=== PATIENT | female | born 1960 | race Caucasian/White ===

== ENCOUNTER 2016-05-08 15:32 | Inpatient (IN) | payer MEDICARE ==
[~2016-05-08] VITALS: Ht 160 cm; Wt 59.1 kg
[2016-05-08] VITALS (10 sets, daily range): BP systolic 139–191; BP diastolic 85–121
--- NOTE | ~2016-05-08 | EKG ---
[place], [place] ELECTROCARDIOGRAM REPORT NAME: SHANTEL DREW UNIT #: [id number] ROOM: 421 DOCTOR: IVANA SAVAGE MD BIRTHDATE: [birth year] DOS: 05/08/2016 TIME: 1600 hours. 1. Sinus tachycardia at 105 beats per minute. 2. Nonspecific T-wave changes in lateral chest leads. 3. Abnormal ECG. 4. No previous tracing is available for comparison. IVANA SAVAGE MD CM:EKGRPT:ELECTROCARDIOGRAM REPORT 23 IVANA SAVAGE MD
[~2016-05-08 15:32] MED LIST: ALBUTEROL0.63 MG/3 NEB; ASPIRIN81 M1 PO; ATIVAN1 MG PO; AUGMENTIN 875875 MG PO; CARAFATE1 G1 PO; CHEWABLE ASPIRI81 MG PO; CIPRO500 MG PO; COLACE100 MG PO; COREG3.125 MG PO; COREG6.25 MG PO; DOXYCYCLINE100 MG PO; DUONEB 3 MG/3 ML3 M1 NEB; KEFLEX500 MG PO; LISINOPRIL5 MG PO; MEDROL DOSEPAK4 MG PO; MIRALAX17 GM/PACK PO; MOTRIN400 MG PO; MOTRIN800 MG PO; NICODERM14 MG/24 H TD; OMEPRAZOLE40 MG PO; OSCAL/D,OYSTER250 MG PO; PERCOCET 325 MG1 TA2 PO; PHENERGAN25 M1 PO; PREDNISONE10 MG PO; PRILOSEC40 MG PO; VENTOLIN H0.09 MG/AC INH; VIBRAMYCIN100 MG PO; VICODIN 500 MG-1 TAB PO
[2016-05-08] MEDS ORDERED: MEDI-FIRST ASP325 MG PO (15:43)
[2016-05-08] MEDS ORDERED: MELATONIN10 M4 PO (15:44)
[2016-05-08 16:07] LABS: BASO % 0.5 % (0.0-1.0); EOS # 0.1 10*3/uL (0.0-0.4); EOS % 0.7 % (1.0-4.0); HEMATOCRIT 48.1 % (37.0-47.0); HEMOGLOBIN 15.6 g/dl (12.0-16.0); LYMPH # 1.7 10*3/uL (1.3-4.4); LYMPH % 22.4 % (27.0-41.0); MEAN CELL VOLUME 85.7 fl (81.0-99.0); MEAN CORPUSCULAR HGB 27.8 pg (27.0-31.0); MEAN CORPUSCULAR HGB CONC 32.4 g/dl (33.0-37.0); MEAN PLATELET VOLUME 9.2 fl (9.6-12.3); MONO # 0.6 10*3/uL (0.1-1.0); MONO % 7.5 % (3.0-9.0); NEUT # 5.1 10*3/uL (2.3-7.9); NEUT % 68.6 % (47.0-73.0); PLATELET COUNT AUTOMATED 378 10*3/uL (130-400); RED BLOOD COUNT 5.61 10*6/uL (4.10-5.10); RED CELL DISTRI WIDTH 14.2 % (0-14.5); WHITE BLOOD COUNT 7.5 10*3/uL (4.8-10.8)
[2016-05-08 16:34] LABS: BILIRUBIN NEGATIVE (NEGATIVE); BLOOD NEGATIVE (NEGATIVE); CLARITY CLEAR (CLEAR); COLOR YELLOW (YELLOW); GLUCOSE NEGATIVE (NEGATIVE); KETONE NEGATIVE (NEGATIVE); LEUKO ESTERASE NEGATIVE (NEGATIVE); NITRITE NEGATIVE (NEGATIVE); PROTEIN NEGATIVE (NEGATIVE); SPECIFIC GRAVITY <= 1.005 (1.005-1.030); UROBILINOGEN 0.2 E.U./dl (0.2-1.0)
[2016-05-08 16:36] LABS: ALBUMIN 4.4 gm/dl (3.1-4.5); ALKALINE PHOSPHATASE 77 U/L (45-117); BILIRUBIN, TOTAL 0.5 mg/dl (0.2-1.0); BUN 7 mg/dl (7-24); CARBON DIOXIDE 28 mmol/L (21-32); CHLORIDE 105 mmol/L (98-107); CKMB 1.1 ng/ml (0.5-3.6); CPK 73 U/L (26-192); EST GLOM FILT AFRICAN AMERICAN > 60 ml/min; GLUCOSE 104 mg/dL (65-99); LDH 169 U/L (84-246); MAGNESIUM 2.4 mg/dL (1.5-2.1); POTASSIUM 3.8 mmol/L (3.5-5.1); SGOT/AST 11 IU/L (3-35); SGPT/ALT 19 U/L (12-78); SODIUM 142 mmol/L (136-145); TOTAL PROTEIN 8.1 gm/dL (6.4-8.2); TROPONIN I 0.116 ng/ml (<0.5)
[2016-05-08 16:48] LABS: RBC 0-2 rbc/hpf (0-2); URINE REFLEX COMMENT NO (NO); WBC 0-2 wbc/hpf (0-5)
[2016-05-09] VITALS: BP 136/92
[2016-05-09 06:21] LABS: BASO % 0.7 % (0.0-1.0); EOS # 0.1 10*3/uL (0.0-0.4); EOS % 1.1 % (1.0-4.0); HEMATOCRIT 46.9 % (37.0-47.0); HEMOGLOBIN 15.1 g/dl (12.0-16.0); LYMPH # 1.4 10*3/uL (1.3-4.4); LYMPH % 25.8 % (27.0-41.0); MEAN CORPUSCULAR HGB 27.4 pg (27.0-31.0); MEAN CORPUSCULAR HGB CONC 32.2 g/dl (33.0-37.0); MEAN PLATELET VOLUME 9.3 fl (9.6-12.3); MONO # 0.4 10*3/uL (0.1-1.0); MONO % 7.6 % (3.0-9.0); NEUT # 3.6 10*3/uL (2.3-7.9); NEUT % 64.6 % (47.0-73.0); PLATELET COUNT AUTOMATED 359 10*3/uL (130-400); RED BLOOD COUNT 5.52 10*6/uL (4.10-5.10); RED CELL DISTRI WIDTH 14.1 % (0-14.5); WHITE BLOOD COUNT 5.5 10*3/uL (4.8-10.8)
[2016-05-09 06:26] LABS: HEMOGLOBIN A1c 5.5 % (4.8-5.6)
[2016-05-09 06:57] LABS: BUN 9 mg/dl (7-24); CARBON DIOXIDE 30 mmol/L (21-32); CHLORIDE 106 mmol/L (98-107); CHOLESTEROL 101 mg/dL (<200); EST GLOM FILT AFRICAN AMERICAN > 60 ml/min; FREE T4 1.17 ng/dl (0.76-1.46); GLUCOSE 94 mg/dL (65-99); HDL CHOLESTEROL 39 mg/dl (40-60); LDL CHOLESTEROL 52 mg/dL (9-159); MAGNESIUM 2.6 mg/dL (1.5-2.1); POTASSIUM 3.8 mmol/L (3.5-5.1); SODIUM 144 mmol/L (136-145); TRIGLYCERIDES 52 mg/dl (<150); VLDL CHOLESTEROL 10 mg/dL (6-40)
[2016-05-09 07:31] LABS: VITAMIN D, 25-HYDROXY 33.1 ng/mL (30-100)
[2016-05-09 07:32] LABS: FOLIC ACID 7.49 ng/mL (>5.38)
[2016-05-09 08:00] VITALS: BP 152/90
[2016-05-09 12:00] VITALS: BP 117/90
[2016-05-09 16:00] VITALS: BP 138/80
[2016-05-09 20:00] VITALS: BP 102/60
[2016-05-10] VITALS: BP 122/80
[2016-05-10 06:44] LABS: BUN 10 mg/dl (7-24); CARBON DIOXIDE 34 mmol/L (21-32); CHLORIDE 105 mmol/L (98-107); EST GLOM FILT AFRICAN AMERICAN > 60 ml/min; GLUCOSE 93 mg/dL (65-99); MAGNESIUM 2.8 mg/dL (1.5-2.1); POTASSIUM 3.9 mmol/L (3.5-5.1); SODIUM 145 mmol/L (136-145)
[2016-05-10 08:00] VITALS: BP 116/68
[2016-05-10] MEDS ORDERED: MIRALAX POWDER17 G1 PO (08:34)
[2016-05-10] MEDS ORDERED: COREG3.125 MG PO (08:34)
[2016-05-10] MEDS ORDERED: DULCOLAX STOOL100 MG PO (08:34)
[2016-05-10] MEDS ORDERED: LISINOPRIL2.5 MG PO (08:34)
== END 2016-05-10 09:34 | disposition home or self-care (01) | DRG 391 ==
LOC: ED 15:32 → 4E 19:01 → EDHOLD 19:01 → 4E 19:17
PROVIDERS: Internal Medicine; Nurse Practitioner Family
DX: K21.9 Gastro-esophageal reflux disease without esophagitis (principal); N17.0 Acute kidney failure with tubular necrosis; I16.1 Hypertensive emergency; I50.22 Chronic systolic (congestive) heart failure; I11.0 Hypertensive heart disease with heart failure; K58.1 Irritable bowel syndrome with constipation; R73.9 Hyperglycemia, unspecified; D72.810 Lymphocytopenia; E83.41 Hypermagnesemia; E78.5 Hyperlipidemia, unspecified; J44.9 Chronic obstructive pulmonary disease, unspecified; H54.8 Legal blindness, as defined in USA; E89.2 Postprocedural hypoparathyroidism; F41.9 Anxiety disorder, unspecified; F17.210 Nicotine dependence, cigarettes, uncomplicated; I25.2 Old myocardial infarction; Z95.5 Presence of coronary angioplasty implant and graft; Z95.1 Presence of aortocoronary bypass graft; Z90.721 Acquired absence of ovaries, unilateral; Z90.49 Acquired absence of other specified parts of digestive tract; Z90.710 Acquired absence of both cervix and uterus; Z90.79 Acquired absence of other genital organ(s); Z98.890 Other specified postprocedural states; Z88.2 Allergy status to sulfonamides; Z82.49 Family history of ischemic heart disease and other diseases of the circulatory system; Z82.3 Family history of stroke; Z83.3 Family history of diabetes mellitus

== ENCOUNTER → 2016-07-11 | Outpatient (CLI) | payer MEDICARE ==
[~2016-07-11] MED LIST changes: +ALDACTONE25 M1 PO; +DULCOLAX STOOL100 MG PO; +LIPITOR20 MG PO; +LISINOPRIL2.5 MG PO; +MEDI-FIRST ASP325 MG PO; +MELATONIN10 M4 PO; +MIRALAX POWDER17 G1 PO; +PRINIVIL10 MG PO
== END | disposition home or self-care (01) ==
LOC: CARD 02:07
DX: J44.9 Chronic obstructive pulmonary disease, unspecified (principal); I25.10 Atherosclerotic heart disease of native coronary artery without angina pectoris; I10 Essential (primary) hypertension; E11.8 Type 2 diabetes mellitus with unspecified complications; I34.0 Nonrheumatic mitral (valve) insufficiency; I07.1 Rheumatic tricuspid insufficiency; I37.1 Nonrheumatic pulmonary valve insufficiency; I51.7 Cardiomegaly; R07.2 Precordial pain; R06.02 Shortness of breath; Z95.1 Presence of aortocoronary bypass graft

== ENCOUNTER → 2020-10-05 | Outpatient (CLI) | payer OTHER ==
[~2020-10-05] MED LIST changes: +DOCUSATE SODIU100 M2 PO; +MIRALAX POWDER255 GM PO
== END | disposition home or self-care (01) ==
LOC: US 09-21 13:00 → CT 08:53
PROVIDERS: ATTEND Internal Medicine Hematology & Oncology
DX: J43.9 Emphysema, unspecified (principal); K44.9 Diaphragmatic hernia without obstruction or gangrene; E04.1 Nontoxic single thyroid nodule; C71.2 Malignant neoplasm of temporal lobe; N64.59 Other signs and symptoms in breast; R52 Pain, unspecified

== ENCOUNTER 2021-01-13 17:51 | Emergency (ER) | payer OTHER ==
[2021-01-13 19:45] VITALS: BP 127/71
[2021-01-13] MEDS ORDERED: PREDNISONE20 M1 PO (20:58)
[2021-01-13] MEDS ORDERED: PROVENTIL HFA6.7 GM INH (20:58)
== END 2021-01-13 22:45 | disposition home or self-care (01) ==
LOC: ED 17:51
DX: S02.2XXA Fracture of nasal bones, initial encounter for closed fracture (principal); S01.81XA Laceration without foreign body of other part of head, initial encounter; S01.21XA Laceration without foreign body of nose, initial encounter; F17.200 Nicotine dependence, unspecified, uncomplicated; Z88.2 Allergy status to sulfonamides; Z79.899 Other long term (current) drug therapy; Z79.82 Long term (current) use of aspirin; W18.09XA Striking against other object with subsequent fall, initial encounter; Y93.89 Activity, other specified; Y92.89 Other specified places as the place of occurrence of the external cause; Y99.8 Other external cause status

== ENCOUNTER → 2021-04-24 | Outpatient (CLI) | payer OTHER ==
[~2021-04-24] MED LIST changes: +PREDNISONE20 M1 PO; +PROVENTIL HFA6.7 GM INH
[2021-04-24 14:32] LABS: CREATININE 0.69 mg/dL (0.55-1.02)
== END | disposition home or self-care (01) ==
LOC: MRI 04-03 10:00
PROVIDERS: Radiology Diagnostic Radiology; ATTEND Internal Medicine
DX: C71.9 Malignant neoplasm of brain, unspecified (principal); R51.9 Headache, unspecified

== ENCOUNTER → 2021-07-10 | Outpatient (CLI) | payer OTHER ==
[~2021-07-10] MED LIST changes: +ATORVASTATIN CA10 M1 PO; +AVPAK LEVETIRA750 M1 PO; +BREO ELLIPTA 21 EACH INH; +DULOXETINE HCL20 MG PO; +GABAPENTIN100 M2 PO; +LORAZEPAM0.5 MG PO; +MIRTAZAPINE15 M2 PO; +MOVANTIK25 MG PO; +OXYCODONE-ACET1 EACH PO; +PANTOPRAZOLE SO20 MG PO; +ROPINIROLE HYD0.5 MG PO; +SENNA LAX8.6 M1 PO; +VIMPAT50 MG PO
== END | disposition home or self-care (01) ==
LOC: ORTHO 00:35
PROVIDERS: ATTEND Orthopaedic Surgery
DX: S72.032D Displaced midcervical fracture of left femur, subsequent encounter for closed fracture with routine healing (principal); X58.XXXD Exposure to other specified factors, subsequent encounter

== ENCOUNTER → 2021-08-14 | Outpatient (CLI) | payer OTHER | END | disposition home or self-care (01) | LOC: MRI 14:00 | PROVIDERS: ATTEND Internal Medicine Hematology & Oncology | DX: C71.2 Malignant neoplasm of temporal lobe (principal); G93.89 Other specified disorders of brain; J34.1 Cyst and mucocele of nose and nasal sinus ==

== ENCOUNTER → 2021-08-23 | Outpatient (CLI) | payer OTHER | END | disposition home or self-care (01) | LOC: ORTHO 01:20 | PROVIDERS: ATTEND Orthopaedic Surgery | DX: S72.032D Displaced midcervical fracture of left femur, subsequent encounter for closed fracture with routine healing (principal); Z96.642 Presence of left artificial hip joint; X58.XXXD Exposure to other specified factors, subsequent encounter ==

== ENCOUNTER → 2021-12-27 | Outpatient (CLI) | payer OTHER ==
[2021-12-27 11:31] LABS: BUN 14 mg/dl (7-24)
== END | disposition home or self-care (01) ==
LOC: LAB 10:49 → MRI 11:00
PROVIDERS: ATTEND Internal Medicine Hematology & Oncology
DX: C71.2 Malignant neoplasm of temporal lobe (principal); D50.9 Iron deficiency anemia, unspecified

== ENCOUNTER → 2022-04-25 | Outpatient (CLI) | payer OTHER ==
[~2022-04-25] MED LIST changes: +SENNA-PLUS TAB1 EACH PO
[2022-04-25 12:52] LABS: BUN 18 mg/dl (9-23)
== END | disposition home or self-care (01) ==
LOC: LAB 04-13 01:55 → MRI 04-13 11:00 → LAB 01:58
PROVIDERS: ATTEND Internal Medicine Hematology & Oncology
DX: C71.2 Malignant neoplasm of temporal lobe (principal); G93.89 Other specified disorders of brain; D50.9 Iron deficiency anemia, unspecified; Z98.890 Other specified postprocedural states

== ENCOUNTER → 2022-07-16 | Outpatient (CLI) | payer OTHER ==
[~2022-07-16] MED LIST changes: +ATIVAN0.5 MG PO; +CYMBALTA30 MG PO; +CYMBALTA60 MG PO; +LACTULOSE10 GM/151 PO; -LORAZEPAM0.5 MG PO
== END | disposition home or self-care (01) ==
LOC: CT 14:00
PROVIDERS: ATTEND Internal Medicine Pulmonary Disease
DX: J43.9 Emphysema, unspecified (principal); K44.9 Diaphragmatic hernia without obstruction or gangrene; J85.2 Abscess of lung without pneumonia

== ENCOUNTER → 2022-08-18 | Outpatient (CLI) | payer OTHER | END | disposition home or self-care (01) | LOC: CT 11:00 | PROVIDERS: ATTEND Internal Medicine Infectious Disease | DX: J43.9 Emphysema, unspecified (principal); J98.4 Other disorders of lung; K44.9 Diaphragmatic hernia without obstruction or gangrene ==